=== PATIENT | male | born 1955 | race Caucasian/White ===

== ENCOUNTER 2017-05-23 09:46 | Outpatient (CLI) | payer BC | END 2017-05-23 09:47 | disposition home or self-care (01) | LOC: LABBT 09:46 | PROVIDERS: ATTEND Surgery | DX: Z01.818 Encounter for other preprocedural examination (principal); R19.00 Intra-abdominal and pelvic swelling, mass and lump, unspecified site ==

== ENCOUNTER 2017-05-24 07:48 | Outpatient (CLI) | payer BC ==
[2017-05-24 09:13] LABS: #Basophils 0.1 thou/uL (0.0-0.2); #Eosinphils 0.2 thou/uL (0.0-0.7); #Lymphocytes 1.6 thou/uL (1.20-3.40); #Monocytes 0.8 thou/uL (0.11-0.59); #Neutrophils 4.1 thou/uL (1.40-6.50); %Eosinophils 2.5 % (0.0-10.0); %Lymphocytes 23.3 % (21.0-51.0); Hematocrit 48.6 % (42.0-52.0); Mean Platelet Volume 8.2 fL (7.4-10.4); Red Blood Cell (RBC) Count 5.57 mill/uL (4.70-6.10); White Blood Cell (WBC) Count 6.7 thou/uL (4.8-10.8)
[2017-05-24 09:36] LABS: Anion Gap 12 mmol/L (10-20); BUN (Urea Nitrogen) 13 mg/dL (8.4-25.7); Calc. Creatinine Clearance 0 mL/min (70-130); Calcium 9.7 mg/dL (7.8-10.44); Carbon Dioxide 29 mmol/L (22-29); Chloride 107 mmol/L (98-107); Estimated GFR-MDRD 79
[2017-05-27 12:15] LABS: Metanephrine,Plasma <10 pg/mL (0-62); Normetanephrine,Pl 16 pg/mL (0-145)
== END 2017-05-24 07:49 | disposition home or self-care (01) ==
LOC: LABBT 07:48
PROVIDERS: ATTEND Surgery
DX: Z01.818 Encounter for other preprocedural examination (principal); R19.00 Intra-abdominal and pelvic swelling, mass and lump, unspecified site
CPT/HCPCS: 80048; 83835; 85025; 93005; 93010

== ENCOUNTER 2017-05-30 09:37 | Inpatient (IN) | payer BC ==
[2017-05-30] MEDS ORDERED: Midazolam HCl 2 mg/2 ml Vial ONE (10:40)
[2017-05-30] MEDS ORDERED: Fentanyl 100 MCG/2 ML VIAL ONE ×3 (10:40→13:44)
[2017-05-30] MEDS ORDERED: Bupivacaine 0.25% HCL 30 ML VIAL ONE ×2 (10:59→12:04)
[2017-05-30] MEDS ORDERED: Ketorolac Tromethamine 30 MG/ML VIAL ONE (11:30)
[2017-05-30] MEDS ORDERED: Dexamethasone 20 MG/5 ML VIAL ONE (11:30)
[2017-05-30] MEDS ORDERED: Metoclopramide HCl 10 MG/2 ML VIAL ONE (11:30)
[2017-05-30] MEDS ORDERED: diphenhydrAMINE HCl 50 MG/ML 1 ML VIAL ONE (11:30)
[2017-05-30] MEDS ORDERED: Glycopyrrolate 0.2 MG/ML 5 ML SYRINGE ONE (11:30)
[2017-05-30] MEDS ORDERED: Lidocaine 1% PF 5 ML VIAL ONE (11:30)
[2017-05-30] MEDS ORDERED: Propofol 200 MG/20 ML VIAL ONE (11:30)
[2017-05-30] MEDS ORDERED: ePHEDrine/0.9% NaCl/PF SYRINGE 50 mg/10 ml ONE (11:30)
[2017-05-30] MEDS ORDERED: Ondansetron HCl/PF 4 MG/2 ML Vial ONE (11:30)
[2017-05-30] MEDS ORDERED: Meperidine HCl/PF 25 MG/ML VIAL ONE (13:12)
[2017-05-30] MEDS ORDERED: Promethazine HCl 25 MG/ML VIAL IM/IV PRN (13:53)
[2017-05-30] MEDS ORDERED: Meperidine HCl/PF 25 MG/ML VIAL IV PRN (13:53)
[2017-05-30] MEDS ORDERED: Non-Formulary Medication 1 EACH PO PRN (13:53)
[2017-05-30] MEDS ORDERED: Ondansetron HCl/PF 4 MG/2 ML Vial IVP PRN ×2 (13:53→15:16)
[2017-05-30] MEDS ORDERED: Morphine Sulfate 2 MG/ML SYRINGE SLOW IVP PRN (15:16)
[2017-05-30] MEDS ORDERED: Ketorolac Tromethamine 30 MG/ML VIAL IVP PRN (15:16)
[2017-05-30] MEDS ORDERED: Promethazine HCl 25 MG/ML VIAL IM PRN (15:16)
[2017-05-30] MEDS ORDERED: FLU VACC QS2017-18 36 mo. & older 0.5 ML SYRINGE IM ONE (18:15)
[2017-05-30] MEDS: Famotidine 20 MG TAB PO SCH (20:13)
[2017-05-30] MEDS: Sodium Chloride 0.9% 1,000 ML IV SCH (20:14)
[2017-05-30] MEDS: Famotidine/PF 20 mg/2ml Vial SLOW IVP SCH (20:14)
[2017-05-30] MEDS ORDERED: Enoxaparin Sodium 40 MG/0.4 ML SYRINGE SC SCH (21:00)
--- NOTE | 2017-05-31 00:38 | OP ---
DATE OF PROCEDURE: 05/30/2017 PREOPERATIVE DIAGNOSIS: Left retroperitoneal mass. POSTOPERATIVE DIAGNOSIS: Left small bowel mass. PROCEDURE: Laparoscopic-assisted small bowel resection and anastomosis. SURGEON: Warren James M.D. ANESTHESIA: General. ESTIMATED BLOOD LOSS: Minimal. COMPLICATIONS: None. SPECIMEN: The tumor was attached to the loop of small intestine intermittently and loosely attached to the posterior wall of the bladder. It seems to be more attached to the small bowel. SPECIMEN: Small bowel tumor. INDICATION: The patient is a 61-year-old male who presents with a palpable mass in his left lower q uadrant associated with occasional abdominal pain. He was also found to have calcified left adrenal mass that was deemed a symptomatic core biopsy. This intraabdominal mass was thought not to be pos sible. It appeared to be highly vascular. 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 Preoperative serum metanephrines were within normal limits. TECHNIQUE: The patient was taken to the operating room and placed supine on the table. After gener al anesthetic was obtained, Beebe was placed. The abdomen was shaved, prepped and draped in a steri le fashion. Incision was made below the umbilicus. Cautery was used to dissect down to and score t he fascia. Abdominal cavity was entered bluntly using a Mely clamp. A 5 mm trocar was placed. Hi gh-flow pneumoperitoneum was obtained. A suprapubic 5-mm port and a right lower quadrant 5-mm port were placed under direct camera visualization. The mass could easily be seen in the left lower quad rant. It was loosely attached to the posterior wall of the bladder. Cautery was used to take a sma ll amount of posterior fat off of the median umbilical ligament in this area allowing it to disconne ct. The bladder wall was seen and did not appear to have a defect. The mass could be seen more lik sha coming from the antimesenteric surface of the small bowel. The bladder was filled with 200 mL o f methylene blue dye and saline. There was no blue leakage in the area where the bladder dissection was performed. Oblique incision was made in the left lower quadrant and Clayton wound retractor was placed. Pneumoperitoneum was let down and all ports have been removed with no bleeding. The mass and small bowel loops were brought up through this opening incision. GUANAKO 75 stapler was fired acros s the small bowel proximal and distal and the mesentery was taken using LigaSure. The small bowel w as brought together in an antimesenteric fashion and a [id number] anastomosis was performed using a GUANAKO 75 stapler. The common enterotomy was closed using TA-60. Silk suture was used to close the crotch of the staple line as well as the mesenteric defect. The abdomen was irrigated using sterile solution in the area where the dissection was performed on the bladder. The peritoneum was oversew n over this area to reinforce using running Vicryl. All instrument counts, needle counts, and lap c ounts were correct. Posterior and anterior fascia in the oblique incision was closed using PDS sutu re. The subcutaneous tissues were irrigated and closed using 4-0 Monocryl and Dermabond. All other incisions were closed using 4-0 Monocryl and Dermabond. The patient went to recovery in stable con dition. All instrument counts, needle counts, and lap counts were correct.
[2017-05-31] MEDS: Sodium Chloride 0.9% 1,000 ML IV SCH (01:04)
[2017-05-31 06:28] LABS: #Basophils 0.1 thou/uL (0.0-0.2); #Eosinphils 0.1 thou/uL (0.0-0.7); #Lymphocytes 1.4 thou/uL (1.20-3.40); #Monocytes 1.4 thou/uL (0.11-0.59); #Neutrophils 7.5 thou/uL (1.40-6.50); %Basophils 0.5 % (0.0-1.0); %Eosinophils 0.8 % (0.0-10.0); %Lymphocytes 13.3 % (21.0-51.0); %Monocytes 13.1 % (0.0-10.0); Hematocrit 40.2 % (42.0-52.0); Mean Platelet Volume 7.9 fL (7.4-10.4); Red Blood Cell (RBC) Count 4.53 mill/uL (4.70-6.10); White Blood Cell (WBC) Count 10.4 thou/uL (4.8-10.8)
[2017-05-31 06:42] LABS: Anion Gap 10 mmol/L (10-20); BUN (Urea Nitrogen) 10 mg/dL (8.4-25.7); Calc. Creatinine Clearance 62 mL/min (70-130); Calcium 8.3 mg/dL (7.8-10.44); Carbon Dioxide 24 mmol/L (22-29); Chloride 106 mmol/L (98-107); Estimated GFR-MDRD 66
[2017-05-31 07:36] VITALS: BP 123/72; TEMP 98.8
[2017-05-31] MEDS: Famotidine 20 MG TAB PO SCH (09:00)
[2017-05-31] MEDS: Famotidine/PF 20 mg/2ml Vial SLOW IVP SCH (09:00)
[2017-05-31] MEDS ORDERED: HYDROcodone/Acetaminophen 7.5/325 mg Tablet PO PRN ×2 (12:47)
[2017-05-31 15:02] VITALS: BMI 19.0
== END 2017-05-31 15:06 | disposition home or self-care (01) | DRG 331 ==
LOC: SDC 09:37 → SURG A 13:28
PROVIDERS: ADMIT Surgery; ATTEND Surgery
PROC: 0DB84ZZ Excision of Small Intestine, Percutaneous Endoscopic Approach (ICD-10-PCS; principal; 2017-05-30)
DX: K63.9 Disease of intestine, unspecified (principal); Q85.00 Neurofibromatosis, unspecified; E78.5 Hyperlipidemia, unspecified
CPT/HCPCS: 36415; 80048; 85025; 88309; 88341; 88342; 88360; A4216; J0131; J0694; J1100; J1200; J1650; J1885; J2001; J2175; J2250; J2405; J2704; J2765; J3010; J7050; Q9968; S0020; S0028

== ENCOUNTER 2017-07-12 12:15 | Outpatient (CLI) | payer BC ==
--- NOTE | 2017-07-13 09:09 | PET ---
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 Examination is requested for staging. Patient has undergone surgery. Patient has a history of neurofibromatosis. COMPARISON: None. TECHNIQUE: PET scanning with CT attenuation correction is performed from the base of the brain to the proximal t highs following the intravenous administration of 12.55 mCi F18-FDG. FINDINGS: HEAD/NECK: No abnormal FDG localization. CHEST: There is a focus of borderline uptake of the radiotracer in the anterior left chest wall with a maxim um SUV of 2.3. A cutaneous neurofibroma is favored. There is no abnormal FDG localization within the thoracic cavity. ABDOMEN/PELVIS: There is an enlarged left adrenal gland with calcifications. Maximum SUV is 2.1 suggesting mild hyper metabolic activity. There is a right paraspinal lesion at approximately the T12 level with a maximum SUV of 2.6. A neurofibroma is favored. There is evidence of suture material in the left hemiabdomen. There is mild FDG avidity in this region with a maximum SUV of 2.2. Uptake is nonspecific. There are cutaneous areas of FDG localization in the anterior left lower quadrant with a maximum SUV of 3.2 and posterior left gluteal region with a maximum SUV of 1.8. These areas of uptake likely correspond to cutaneous manifestations of a patient with neurofibromatosis. OSSEOUS STRUCTURES: No abnormal FDG localization. IMPRESSION: 1. Multiple cutaneous areas of upper normal FDG localization likely representing cutaneous manifesta tions of patient's history of neurofibromatosis. 2. Right paraspinal neurofibroma at approximately T12. 3. Mildly hypermetabolic left adrenal gland with associated mass and calcification. 4. No abnormal FDG localization in the alimentary canal. POS: TENISHA
== END 2017-07-12 12:16 | disposition home or self-care (01) ==
LOC: PET 12:15
PROVIDERS: ATTEND Internal Medicine Medical Oncology
DX: C49.A3 Gastrointestinal stromal tumor of small intestine (principal)
CPT/HCPCS: 78815; A9552

== ENCOUNTER 2018-07-25 09:35 | Outpatient (CLI) | payer OTHER ==
[~2018-07-25 09:35] MED LIST: Iopamidol 370 76% 100 ML VIAL ONE
--- NOTE | 2018-07-25 16:14 | CT ---
CHEST CT WITH CONTRAST ABDOMEN AND PELVIS CT WITH CONTRAST 07/25/18 HISTORY: GI stromal tumor of the small intestines. COMPARISON: None. CORRELATION: PET imaging 07/12/17. TECHNIQUE: Chest, abdomen and pelvic CT are performed with IV and oral contrast. Coronal reformatted images are submitted for interpretation. FINDINGS: CHEST CT: Heterogeneous thyroid gland. Nonemergent thyroid ultrasound is recommended. No mediastinal mass, lymphadenopathy, or hematoma. No hilar mass or lymphadenopathy. Heart size is no rmal. No pericardial effusion. The thoracic and abdominal aorta have a normal caliber. No periaortic fat stranding. Dependent atelectatic changes in the lung parenchyma. No consolidation or masses. No pleural effusion or pneumothorax. Trachea and central bronchi are patent. CT ABDOMEN: Unremarkable gallbladder. Patent portal vein. Liver, spleen, pancreas, and right adrenal gland are un remarkable. Redemonstration of a left adrenal mass with calcification measuring 3.2 x 2.5 cm. No mega rohepatic, retrocrural or periportal lymphadenopathy. Hypodensities in the left and right kidney are too small to characterize. Bilaterally, no obstructive uropathy. Overall symmetric enhancement of the renal cortices. No mesenteric mass, lymphadenopathy, free air or free fluid. Gastric mucosa, duodenum and multiple normal caliber small bowel loops are identified. Ileocecal junc tion is normal. Appendix is not appreciated. No inflammation of the cecal apex. Colon is unremarkable . CT PELVIS: No mass, lymphadenopathy, free air or free fluid. There is mass effect upon the urinary bl adder secondary to prostatic hypertrophy. There are extensive cutaneous soft tissue densities compatible with cutaneous nodules in a patient wi th a history of neurofibromatosis. There is a right paraspinal lesion which is likely a large neurofi broma measuring 4.8 x 3.8 cm. No lytic or blastic lesions in the osseous structures. Bone islands in the pelvis are noted. IMPRESSION: 1. No evidence of metastases/malignancy in the chest, abdomen and pelvis. 2. Findings compatible with a patient's history of neurofibromatosis. 3. Left adrenal lesion corresponding to previous PET imaging. POS: H
== END 2018-07-25 09:36 | disposition home or self-care (01) ==
LOC: SCSCT 09:35
PROVIDERS: ATTEND Internal Medicine Medical Oncology
DX: C49.A3 Gastrointestinal stromal tumor of small intestine (principal); E27.9 Disorder of adrenal gland, unspecified
CPT/HCPCS: 71260; 74177; 82565

== ENCOUNTER 2019-01-25 10:24 | Outpatient (CLI) | payer OTHER ==
--- NOTE | 2019-01-25 12:12 | CT ---
CT Chest Abd Pelvis W Con History: Z 49.83. GI stromal tumor of small intestine. Comparison: CT examination July 2018 Findings: Extensive motion artifact the lung bases. Some mild posterior pleural peripheral scarring r ight lower lobe is similar. No suspicious pulmonary nodule. No pneumothorax. No effusion. Multiple nodules within both lobes of the thyroid. No mediastinal adenopathy. No pericardial effusion . Multiple foci of nodular skin thickening of the chest anteriorly and posteriorly as well as of the ab domen. Similar appearance of the nerve sheath tumor along the right T12/L1 neural foramen. The spleen has multiple calcified granulomas. Multiple calcifications within a mass in the left adren al gland. This is not definitively an adenoma and the measurements are similar. Prostate markedly enlarged. The appendix is mildly distended and fluid-filled. No free intraperitoneal gas or fluid. Liver and pancreas and adrenal glands are unremarkable. Normal proximal small bowel dilatation. No ab normal soft tissue mass within the small bowel. Mid small bowel sutures appreciated without adjacent mass. No acute osseous abnormality. Small right renal hypodensities are too small fully characterize althou gh statistically likely cysts. Impression: 1. No evidence of metastatic disease within the chest, abdomen, or pelvis. 2. No evidence for disease recurrence. 3 Similar size left adrenal mass with internal calcifications. Recommend workup for pheochromocytoma. 4. Similar findings of neurofibromatosis. 5. Marked prostatomegaly.
== END 2019-01-25 10:25 | disposition home or self-care (01) ==
LOC: SCSCT 10:24
PROVIDERS: ATTEND Internal Medicine Medical Oncology
DX: C49.A3 Gastrointestinal stromal tumor of small intestine (principal); E27.9 Disorder of adrenal gland, unspecified; Q85.00 Neurofibromatosis, unspecified; N40.0 Benign prostatic hyperplasia without lower urinary tract symptoms
CPT/HCPCS: 71260; 74177; Q9967

== ENCOUNTER 2019-03-06 09:59 | Emergency (ER) | payer OTHER ==
[~2019-03-06 09:59] MED LIST changes: +Iopamidol 300 61% 100 ML VIAL FS ONE; -Iopamidol 370 76% 100 ML VIAL ONE
[2019-03-06 10:43] LABS: #Basophils 0.1 thou/uL (0.0-0.2); #Eosinphils 0.1 thou/uL (0.0-0.7); #Lymphocytes 0.9 thou/uL (1.20-3.40); #Monocytes 0.6 thou/uL (0.11-0.59); #Neutrophils 5.8 thou/uL (1.40-6.50); %Basophils 1.1 % (0.0-1.0); %Lymphocytes 12.5 % (21.0-51.0); %Monocytes 8.6 % (0.0-10.0); %Neutrophils 76.9 % (42.0-75.0); Hemoglobin 13.6 g/dL (14.0-18.0); Mean Corpuscular HGB CONC 33.3 g/dL (32.0-36.0); Mean Corpuscular Hemoglobin 30.7 pg (27.0-31.0); Mean Corpuscular Volume 92.1 fL (78.0-98.0); Mean Platelet Volume 6.7 fL (7.4-10.4); Platelet Count 276 thou/uL (130-400); RBC Distribution Width 12.6 % (11.5-14.5); Red Blood Cell (RBC) Count 4.42 mill/uL (4.70-6.10); White Blood Cell (WBC) Count 7.5 thou/uL (4.8-10.8)
[2019-03-06 10:49] LABS: Anion Gap 14 mmol/L (10-20); BUN (Urea Nitrogen) 17 mg/dL (8.4-25.7); Calc. Creatinine Clearance 0 mL/min (70-130); Calcium 8.4 mg/dL (7.8-10.44); Carbon Dioxide 23 mmol/L (23-31); Chloride 107 mmol/L (98-107); Estimated GFR-MDRD 86; Glucose 103 mg/dL (80-115); Potassium 3.7 mmol/L (3.5-5.1); Sodium 140 mmol/L (136-145)
--- NOTE | 2019-03-06 11:49 | CT ---
CT THORAX WITH CONTRAST CT ABDOMEN WITH CONTRAST CT PELVIS WITH CONTRAST: (trauma protocol) 03/06/2019 HISTORY: A 63-year-old male with acute trauma to the chest, abdomen, and pelvis. TECHNIQUE: IV administration of iodinated contrast media. No oral contrast media. Single phase scans of thorax, abdomen, and pelvis. Sagittal reconstructions of thoracic and lumbar spine. FINDINGS: Thoracic and lumbar spine: Exaggerated kyphosis and mild lateral curvature of the thoracic spine. Vertebral body heights are ma intained with no acute compression fracture. Thorax: No pulmonary contusion, consolidation, or edema. No pleural effusion or pneumothorax. No mediastina l or hilar lymphadenopathy. No mediastinal hematoma. No sternal fracture. No thoracic aortic aneur ysm or dissection. No cardiomegaly or pericardial effusion. Abdomen: Essentially normal liver, abdominal aorta, pancreas, right adrenal, and spleen. Right upper retroperitoneal, paraspinal, moderately low density tumor mass, measuring approximately 5 .5 x 3 x 6.5 cm, with a small component protruding into the right T12-L1 neural foramen. Partially calcified, 3.3 x 2.8 x 4.2 cm left adrenal mass. No free fluid. No retroperitoneal hemato ma. No renal laceration. No hydronephrosis. Two small hypodensities in the right kidney, approximately 1 cm in size each, probably cysts but too small to characterize definitively. Suture line around a loop of bowel in the left upper quadrant. Pelvis: Very enlarged prostate gland, invaginating the base of the urinary bladder. The rest of the urinary bladder has thin, normal raygoza. No intrapelvic free fluid or extrapelvic hematoma. Enlargement of b ilateral seminal vesicles. Skeletal: No acute fracture. Multiple soft tissue densities, cutaneous/subcutaneous nodules throughout the chest, abdomen, and pel vis. IMPRESSION: 1. No evidence of acute traumatic injury in the chest, abdomen, or pelvis. 2. Large right paraspinal neurofibroma: Evidence for neurofibromatosis type 1. 3. Large number of cutaneous/subcutaneous nodules: evidence for neurofibromatosis type 1. 4. Left adrenal mass with partial calcifications. One possibility is pheochromocytoma. 5. The only interval change compared to 01/25/2019 is the presence of a suture line at a bowel loop in the left upper quadrant, on the current study. 6. Evidence for benign prostatic hyperplasia (this does not necessarily exclude prostate cancer). JN R POS: CET
== END 2019-03-06 12:15 | disposition home or self-care (01) ==
LOC: SCSER 09:59
DX: S30.1XXA Contusion of abdominal wall, initial encounter (principal); S20.211A Contusion of right front wall of thorax, initial encounter; W22.8XXA Striking against or struck by other objects, initial encounter
CPT/HCPCS: 71260; 74177; 80048; 85025; Q9967

== ENCOUNTER 2019-09-10 08:43 | Outpatient (CLI) | payer OTHER ==
--- NOTE | 2019-09-10 11:58 | MRI ---
EXAM: MRI of the abdomen without and with contrast COMPARISON: None HISTORY: Left adrenal mass and the left renal mass TECHNIQUE: Multiplanar multi sequence MR images were taken of the abdomen without and with IV contras t. [An MRCP was performed.] FINDINGS: Liver: No focal liver lesions or intrahepatic ductal dilatation. Normal signal without dropout on out of phase images. No abnormal enhancement. Gallbladder: No filling defects or gallbladder wall thickening. Common bile duct: Normal caliber without filling defects Adrenal glands: There is a 3.0 cm left adrenal mass. This is heterogeneous in appearance on the T2 se quence. This does not demonstrate loss of signal on out of phase imaging.. Kidneys: No hydronephrosis or suspicious renal lesions. Small subcentimeter cysts in the right kidney . No abnormal areas of enhancement. Spleen: Unremarkable. Pancreas: Unremarkable. No abnormal enhancement. Retroperitoneum: No enlarged lymph nodes Bones: No marrow signal abnormality. There is a well-circumscribed mass demonstrating high T2 signal at the right thoracolumbar junction which is stable and may represent a neurofibroma. A large amount of enhancing nodules are seen along the skin surface which likely represents subcutane ous neurofibromas. IMPRESSION: 1. Nonspecific left adrenal mass. This does not meet criteria for a fat-containing adrenal adenoma. A follow-up scan should be performed to ensure stability. This mass also needs to be assessed with urine catecholamines. 2. 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 3. Right renal cysts
[2019-09-10 18:18] LABS: Bacteria/HPF None Seen HPF (None Seen); Bilirubin Negative (Negative); Blood, Urine Negative (Negative); Clarity Clear (Clear); Glucose, Urine (Dipstick) Normal (Negative); Leukocyte Negative Leu/uL (Negative); Nitrite Negative (Negative); Protein, Urine (Dipstick) Negative (Neg-Trace); RBC/HPF 0-3 HPF (0-3); Squamous Epithelial None Seen HPF (0-3); Urobilinogen Normal mg/dL (Less than 2); WBC/HPF 0-3 HPF (0-3)
== END 2019-09-10 08:44 | disposition home or self-care (01) ==
LOC: SCSMRI 08:43
PROVIDERS: ATTEND Urology
DX: E27.8 Other specified disorders of adrenal gland (principal); Q85.01 Neurofibromatosis, type 1; D36.10 Benign neoplasm of peripheral nerves and autonomic nervous system, unspecified; N28.1 Cyst of kidney, acquired; N40.1 Benign prostatic hyperplasia with lower urinary tract symptoms; R39.198 Other difficulties with micturition
CPT/HCPCS: 74183; 81001; 82565; 87086

== ENCOUNTER 2019-09-20 15:37 | Outpatient (CLI) | payer OTHER ==
[2019-09-20 17:23] LABS: Hemoglobin 15.1 g/dL (14.0-18.0); Mean Corpuscular HGB CONC 32.5 g/dL (32.0-36.0); Mean Corpuscular Hemoglobin 30.6 pg (27.0-31.0); Mean Corpuscular Volume 94.1 fL (78.0-98.0); Mean Platelet Volume 7.7 fL (7.4-10.4); Platelet Count 275 thou/uL (130-400); Red Blood Cell (RBC) Count 4.92 mill/uL (4.70-6.10); White Blood Cell (WBC) Count 7.2 thou/uL (4.8-10.8)
[2019-09-20 17:27] LABS: Prothrombin Time 13.2 SEC (12.0-14.7)
[2019-09-20 17:28] LABS: PTT 31.1 SEC (22.9-36.1)
[2019-09-20 17:37] LABS: Bacteria/HPF None Seen HPF (None Seen); Bilirubin Negative (Negative); Blood, Urine Negative (Negative); Clarity Clear (Clear); Glucose, Urine (Dipstick) Normal (Negative); Leukocyte Negative Leu/uL (Negative); Nitrite Negative (Negative); Protein, Urine (Dipstick) Negative (Neg-Trace); RBC/HPF 0-3 HPF (0-3); Squamous Epithelial None Seen HPF (0-3); Urobilinogen Normal mg/dL (Less than 2); WBC/HPF 0-3 HPF (0-3)
[2019-09-20 17:40] LABS: Anion Gap 12 mmol/L (10-20); BUN (Urea Nitrogen) 15 mg/dL (8.4-25.7); Calc. Creatinine Clearance 0 mL/min (70-130); Calcium 9.3 mg/dL (7.8-10.44); Carbon Dioxide 27 mmol/L (23-31); Chloride 107 mmol/L (98-107); Estimated GFR-MDRD 69; Glucose 77 mg/dL (80-115); Potassium 4.5 mmol/L (3.5-5.1); Sodium 141 mmol/L (136-145)
== END 2019-09-20 15:38 | disposition home or self-care (01) ==
LOC: LABBT 15:37
PROVIDERS: ATTEND Urology
DX: Z01.818 Encounter for other preprocedural examination (principal); R97.20 Elevated prostate specific antigen [PSA]; C49.A0 Gastrointestinal stromal tumor, unspecified site; N40.1 Benign prostatic hyperplasia with lower urinary tract symptoms; Q85.00 Neurofibromatosis, unspecified; K59.00 Constipation, unspecified; R39.198 Other difficulties with micturition; E27.8 Other specified disorders of adrenal gland; Q87.89 Other specified congenital malformation syndromes, not elsewhere classified
CPT/HCPCS: 80048; 81001; 85027; 85610; 85730; 87086; 93005; 93010

== ENCOUNTER 2019-10-03 07:34 | Observation (INO) | payer OTHER ==
[2019-09-20 15:50] VITALS: BMI 22.8
[2019-10-03] MEDS ORDERED: Levofloxacin 500 mg/D5W 100 ml Premix Bag ONE (08:36)
[2019-10-03] MEDS ORDERED: Fentanyl 100 MCG/2 ML VIAL ONE (10:26)
[2019-10-03] MEDS ORDERED: PROPOFOL 200 MG/20 ML VIAL ONE (11:52)
[2019-10-03] MEDS ORDERED: Lidocaine 1% PF 5 ML VIAL ONE (11:52)
[2019-10-03] MEDS ORDERED: Hyoscyamine Sulfate SL 0.125 mg Tablet ONE ×2 (11:56→11:58)
--- NOTE | 2019-10-03 12:18 | OP ---
DATE OF PROCEDURE: 10/03/2019 PREOPERATIVE DIAGNOSIS: A 63-year-old male with history of benign prostatic hyperplasia, incomplete emptying. POSTOPERATIVE DIAGNOSIS: A 63-year-old male with history of benign prostatic hyperplasia, incomplete emptying. PROCEDURE PERFORMED: Cystoscopy, UroLift implant x7. ANESTHESIA: TIVA. COMPLICATIONS: None apparent. DISPOSITION: To recovery room in stable condition. INDICATIONS FOR PROCEDURE AND HISTORY: Mr. Ball is a 63-year-old male with history of BPH, with history of enlarged prostate. He previously underwent workup for elevated PSA, negative for malignancy. He presents today for UroLift as his PSA subsequently has decreased with dual medical therapy. Risks and complications of the procedure were reviewed with him in detail including, but not limited to, bleeding, pain, infection, injury to adjacent organs, urosepsis, possible injury to ureteral orifices, neurovascular bundle, risk of bleeding, chronic pain, possible migrated implant resulting in urolithiasis. Warranting treatment was reviewed with him in detail and all questions answered to his satisfaction and he desired to proceed. DESCRIPTION OF PROCEDURE: After an informed consent was signed, the patient was taken to the operating room, placed in a dorsal lithotomy position with the genital area prepped and draped in the usual surgical sterile fashion. A 21-Cymro cystoscope was utilized for cystoscopy, which demonstrated normal anterior and posterior urethra. Bilobar hyperplasia of the prostate moderately obstructing was noted. UOs are about 2 mm proximal to the bladder neck. At this time, we did transition to a UroLift 21-Cymro cystoscope with a visual obturator. We performed the first implant on the left lateral lobe. Care was taken to stay about 1.5 cm proximal to the bladder neck. A total of three implants on the left, a total of two on the right lobe was placed. His lateral lobes of the prostate were very floppy in nature. Implant placed on the left mid lateral resulted in capsular pull-through in which the urethra tab was removed with a DVIU scope 21-Cymro, using grasping forceps, this was removed as it was a pull-through. We did attempt to place another one at the left mid lobe, however, it result in a pull-through. At the end of the procedure, a total of three implants on the left, two on the right lateral lobe. Resolution of obstructing lobes were noted. He did have hematuria component. Therefore, 18-Cymro 30 mL Beebe catheter was placed. I will monitor his urine output with indwelling Beebe catheter. As he has tendency for incomplete emptying, we will most likely discharge with indwelling Beebe catheter to gravity and remove the Beebe catheter for a voiding trial in a few days. He is discharged with ciprofloxacin for 7 days, Azo p.r.n. Job ID: [id number] MTDD
[2019-10-03] MEDS ORDERED: Phenazopyridine HCl 97.5 MG TABLET ONE (13:15)
[2019-10-03] MEDS ORDERED: HYDROcodone/Acetaminophen 5/325 mg Tablet PO PRN ×2 (16:34)
[2019-10-03] MEDS ORDERED: hydrALAZINE 20 MG/ML VIAL SLOW IVP PRN ×2 (16:34)
[2019-10-03] MEDS ORDERED: Zolpidem Tartrate 5 MG TAB PO PRN (16:34)
[2019-10-03] MEDS ORDERED: Oxybutynin 5 MG TAB PO PRN (16:34)
[2019-10-03] MEDS ORDERED: Phenazopyridine HCl 97.5 MG TABLET PO PRN (16:34)
[2019-10-03] MEDS: Sodium Chloride 0.9% 1,000 ML IV SCH ×2 (18:08→19:56)
[2019-10-03] MEDS: Famotidine/PF 20 mg/2ml Vial SLOW IVP SCH ×2 (19:58→20:00)
[2019-10-03] MEDS: Docusate 100 MG CAP PO SCH (19:58)
[2019-10-03] MEDS ORDERED: Tamsulosin HCl 0.4 MG CAP PO SCH (21:00)
[2019-10-03] MEDS ORDERED: Dutasteride 0.5 MG CAP PO SCH (21:00)
[2019-10-03] MEDS ORDERED: Atorvastatin Calcium 20 MG TAB PO SCH (21:00)
[2019-10-04] MEDS ORDERED: Ferrous Sulfate 325 MG TAB PO SCH (08:00)
[2019-10-04] MEDS ORDERED: Multivit, Therapeutic 1 TAB PO SCH (09:00)
[2019-10-04] MEDS ORDERED: Tamsulosin HCl 0.4 MG CAP PO SCH (09:00)
[2019-10-04] MEDS: Docusate 100 MG CAP PO SCH (09:45)
[2019-10-04] MEDS: Famotidine/PF 20 mg/2ml Vial SLOW IVP SCH (09:45)
[2019-10-04 11:30] VITALS: BP 131/82; TEMP 97.8
--- NOTE | 2019-10-04 12:03 | DIS ---
DATE OF ADMISSION: 10/03/2019 DATE OF DISCHARGE: 10/04/2019 ADMITTING DIAGNOSES: History of benign prostatic hypertrophy and incomplete emptying. DISCHARGE DIAGNOSES: History of benign prostatic hypertrophy and incomplete emptying. DISPOSITION: To home with self-care. DISCHARGE MEDICATIONS: Include: 1. Azo p.r.n. 2. Ciprofloxacin for 7 days. BRIEF HOSPITAL COURSE: Mr. Ball is a 63-year-old male with history of GI malignancy, BPH, and incomplete emptying, who underwent UroLift. He tolerated the procedure uneventfully; however, due to hematuria, I did admit him overnight to monitor for degree of hematuria on CBI. His CBI was held in the last few hours , and urine output is hollis clear. Voiding trial initiated. Pending voiding trial, I will monitor degree of hematuria and PVR and anticipate the patient to be discharged. He has a followup appointment being next Tuesday for followup of PVR. He has been informed to hold his Gleevec, which has been approved by his oncologist due to immunosuppressive therapy and increased risk of infection complication. He verbalizes understanding. Patient was monitored with no significant postvoid residual minimal at 51 cc per had component of hematuria after catheter removal , last voided urine clear yellow. Patient discharged home uneventfully Job ID: [id number] MTDD
[2019-10-04] MEDS: Sodium Chloride 0.9% 1,000 ML IV SCH (12:04)
== END 2019-10-04 13:25 | disposition home or self-care (01) ==
LOC: SDC 07:34 → SJJU 17:41
PROVIDERS: ADMIT Urology; ATTEND Urology
PROC: 0T7D8DZ Dilation of Urethra with Intraluminal Device, Via Natural or Artificial Opening Endoscopic (ICD-10-PCS; principal; 2019-10-03)
DX: N40.1 Benign prostatic hyperplasia with lower urinary tract symptoms (principal); R39.14 Feeling of incomplete bladder emptying; R39.198 Other difficulties with micturition; E78.00 Pure hypercholesterolemia, unspecified; Q85.00 Neurofibromatosis, unspecified; K59.00 Constipation, unspecified; E27.8 Other specified disorders of adrenal gland; Z79.899 Other long term (current) drug therapy; Z90.49 Acquired absence of other specified parts of digestive tract
CPT/HCPCS: 51798; 96361; 96374; 96375; C1889; G0378; J1956; J2001; J2704; J3010; S0028

== ENCOUNTER 2019-10-08 13:50 | Outpatient (CLI) | payer OTHER ==
--- NOTE | 2019-10-08 14:29 | RAD ---
CHEST 2 VIEWS: Date: 10/08/2019 HISTORY: GI stromal tumor of small bowel, follow-up. COMPARISON: [employer] film from chest/abdomen/pelvis CT of 03/06/2019. FINDINGS: Minimal increased bronchovascular markings bilaterally. Heart size within normal limits. No confluent pneumonia, overt edema, or pleural effusion. IMPRESSION: No significant acute intrathoracic disease. No plain x-ray evidence for pulmonary metastasis. POS: T[facility]
== END 2019-10-08 13:51 | disposition home or self-care (01) ==
LOC: BICRAD 13:50
PROVIDERS: ATTEND Internal Medicine Medical Oncology
DX: C49.A3 Gastrointestinal stromal tumor of small intestine (principal)
CPT/HCPCS: 71046

== ENCOUNTER 2022-04-15 07:36 | Outpatient (CLI) | payer BC | END 2022-04-15 07:37 | disposition home or self-care (01) | LOC: SCSMRI 07:36 | PROVIDERS: ATTEND Internal Medicine Medical Oncology | DX: C49.A3 Gastrointestinal stromal tumor of small intestine (principal); E27.8 Other specified disorders of adrenal gland; Z79.899 Other long term (current) drug therapy | CPT/HCPCS: 74183 ==

== ENCOUNTER 2025-03-27 07:31 | Outpatient (CLI) | payer MEDICARE, OTHER ==
[2025-03-27 08:22] LABS: Estimated GFR - POC 73.0
== END 2025-03-27 07:32 | disposition home or self-care (01) ==
LOC: SCSMRI 07:31
PROVIDERS: ATTEND Internal Medicine
DX: C49.A3 Gastrointestinal stromal tumor of small intestine (principal); E27.9 Disorder of adrenal gland, unspecified; D36.10 Benign neoplasm of peripheral nerves and autonomic nervous system, unspecified
CPT/HCPCS: 36415; 74183; 82565

== ENCOUNTER 2025-05-07 07:36 | Outpatient (CLI) | payer MEDICARE, OTHER ==
[2025-05-07 08:11] LABS: Estimated GFR - POC 73.0
== END 2025-05-07 07:37 | disposition home or self-care (01) ==
LOC: SCSMRI 07:36
PROVIDERS: ATTEND Student in an Organized Health Care Education/Training Program
DX: Q85.00 Neurofibromatosis, unspecified (principal); D49.89 Neoplasm of unspecified behavior of other specified sites
CPT/HCPCS: 36415; 70553; 72157; 76376; 82565

== ENCOUNTER 2025-05-14 07:42 | Outpatient (CLI) | payer MEDICARE, OTHER | END 2025-05-14 07:43 | disposition home or self-care (01) | LOC: SCSMRI 07:42 | PROVIDERS: ATTEND Student in an Organized Health Care Education/Training Program | DX: Q85.00 Neurofibromatosis, unspecified (principal); M47.816 Spondylosis without myelopathy or radiculopathy, lumbar region; M48.07 Spinal stenosis, lumbosacral region; M48.061 Spinal stenosis, lumbar region without neurogenic claudication; M48.02 Spinal stenosis, cervical region | CPT/HCPCS: 72156; 72158 ==